=== PATIENT | female | born 1990 | race Caucasian/White ===

== ENCOUNTER 2017-02-21 10:15 | Inpatient (IN) | payer MEDICAID ==
[~2017-02-21] VITALS: Ht 165.1 cm; Wt 66.9 kg
[2017-02-21] MEDS ORDERED: DIAZEPAM 5 MG/ML, 2ML IVPush ONE (11:00)
[2017-02-21] MEDS ORDERED: SODIUM CHLORIDE FLUSH 10ML SYR IVF ONE (11:00)
[2017-02-21] MEDS ORDERED: KETOROLAC 30 MG/1 ML IVPush ONE (11:00)
[2017-02-21] MEDS ORDERED: SODIUM CHLORIDE 0.9% 1,000ML IV ONE (11:00)
[2017-02-21] MEDS ORDERED: KETOROLAC 30 MG/1 ML ONE (11:37)
[2017-02-21 12:26] LABS: HEMATOCRIT 43.1 % (34.6-47.8); HEMOGLOBIN 14.2 g/dL (11.7-16.4); WHITE BLOOD COUNT 20.4 x10^3/uL (3.4-10)
[2017-02-21 12:34] LABS: BLOOD UREA NITROGEN 10 mg/dL (7-18)
[2017-02-21 12:36] LABS: DIFF TOTAL CELLS COUNTED 100 CELL DIFF
[2017-02-21 12:38] LABS: VERIFY COUNTS? YES
[2017-02-21] MEDS ORDERED: GADOBUTROL 7.5 MMOL/7.5 ML PFS ONE (13:38)
[2017-02-21] MEDS ORDERED: OMNIPAQUE 350 MG/ML, 100ML BOTTLE ONE (13:58)
[2017-02-21] MEDS ORDERED: PIPERACILLIN/TAZO/PMX 3.375GM 50 ML ONE (14:22)
[2017-02-21] MEDS ORDERED: VANCOMYCIN 1,200 MG in SODIUM CHLORIDE 0.9% 250 ML IV ONE (14:30)
[2017-02-21] MEDS ORDERED: SODIUM CHLORIDE 0.9% 1,000ML IVBOLUS ONE (14:30)
[2017-02-21] MEDS ORDERED: PIPERACILLIN/TAZO/PMX 3.375GM 50 ML IV ONE (14:30)
[2017-02-21] MEDS ORDERED: VANCOMYCIN PER PHARMACY MC ONE (14:30)
[2017-02-21] MEDS ORDERED: POLYETHYLENE GLYCOL 17 GM PACKET PO PRN (17:00)
[2017-02-21] MEDS ORDERED: VANCOMYCIN PER PHARMACY MC PRN (17:00)
[2017-02-21] MEDS ORDERED: DOCUSATE 100 MG CAPSULE PO PRN (17:00)
[2017-02-21] MEDS ORDERED: BISACODYL 10 MG SUPP PR PRN (17:00)
[2017-02-21] MEDS ORDERED: PROMETHAZINE 25 MG/ML, 1ML IM PRN (17:00)
[2017-02-21 17:22] LABS: HIV 1&2 ANTIBODY SCREEN Nonreactive (Nonreactive); HIV-1 p24 ANTIGEN Nonreactive (Nonreactive)
[2017-02-21] MEDS: ENOXAPARIN 40 MG/0.4 ML SQ SCH (18:00)
[2017-02-21] MEDS ORDERED: PHARMACOKINETIC MONITORING MC PRN (18:00)
[2017-02-21] MEDS: HYDROcodone/APAP 5/325 TABLET PO PRN (18:31)
[2017-02-21] MEDS: LORazepam 2 MG/ML, 1ML IVPush PRN (18:31)
[2017-02-21 19:00] VITALS: BP 116/77
[2017-02-21] MEDS: SODIUM CHLORIDE 0.9% 1,000 ML IV SCH (20:25)
[2017-02-21] MEDS: PIPERACILLIN/TAZO/PMX 3.375GM 50 ML IV SCH (22:53)
[2017-02-21 23:00] VITALS: BP 116/77
[2017-02-22] MEDS: HYDROcodone/APAP 5/325 TABLET PO PRN ×4 (00:14→21:06)
[2017-02-22 01:22] VITALS: BP 108/71
[2017-02-22] MEDS: VANCOMYCIN 1,200 MG in SODIUM CHLORIDE 0.9% 250 ML IV SCH ×2 (04:04→17:03)
[2017-02-22] MEDS: SODIUM CHLORIDE 0.9% 1,000 ML IV SCH ×3 (04:04→21:06)
[2017-02-22] MEDS: morphine SULFATE 10 MG/ML, 1ML IVPush PRN ×7 (05:51→23:53)
[2017-02-22] MEDS: ONDANSETRON 2MG/ML, 2ML IVPush PRN ×2 (05:51→13:05)
[2017-02-22 06:03] LABS: HEMATOCRIT 32.1 % (34.6-47.8); HEMOGLOBIN 10.8 g/dL (11.7-16.4)
[2017-02-22 06:24] LABS: ASPARTATE AMINO TRANSFERASE 10 U/L (15-37); BLOOD UREA NITROGEN 11 mg/dL (7-18)
[2017-02-22] MEDS: PIPERACILLIN/TAZO/PMX 3.375GM 50 ML IV SCH ×3 (06:37→21:06)
[2017-02-22 07:50] VITALS: BP 132/87
[2017-02-22 14:25] VITALS: BP 116/78
[2017-02-22] MEDS: ENOXAPARIN 40 MG/0.4 ML SQ SCH (17:03)
[2017-02-22 20:35] VITALS: BP 124/93
[2017-02-22] MEDS: LORazepam 2 MG/ML, 1ML IVPush PRN (23:32)
[2017-02-23] MEDS: HYDROcodone/APAP 5/325 TABLET PO PRN ×5 (02:06→22:10)
[2017-02-23 02:11] VITALS: BP 120/76
[2017-02-23] MEDS: morphine SULFATE 10 MG/ML, 1ML IVPush PRN ×5 (04:35→23:14)
[2017-02-23] MEDS: PIPERACILLIN/TAZO/PMX 3.375GM 50 ML IV SCH ×3 (04:40→20:44)
[2017-02-23] MEDS: SODIUM CHLORIDE 0.9% 1,000 ML IV SCH ×3 (04:40→19:40)
[2017-02-23 05:54] LABS: HEMATOCRIT 30.5 % (34.6-47.8); HEMOGLOBIN 10.1 g/dL (11.7-16.4); WHITE BLOOD COUNT 13.6 x10^3/uL (3.4-10)
[2017-02-23 05:56] LABS: BLOOD UREA NITROGEN 8 mg/dL (7-18)
[2017-02-23] MEDS: VANCOMYCIN 1,200 MG in SODIUM CHLORIDE 0.9% 250 ML IV SCH (06:00)
[2017-02-23] MEDS: ONDANSETRON 2MG/ML, 2ML IVPush PRN ×2 (06:10→13:03)
[2017-02-23] MEDS: LORazepam 2 MG/ML, 1ML IVPush PRN ×2 (06:10→13:03)
[2017-02-23 07:44] VITALS: BP 136/94
[2017-02-23] MEDS ORDERED: POTASSIUM CHLORIDE 20 MEQ TAB.ER.PRT PO ONE (10:30)
[2017-02-23 14:00] VITALS: BP 120/85
[2017-02-23] MEDS: ENOXAPARIN 40 MG/0.4 ML SQ SCH (17:33)
[2017-02-23 20:08] VITALS: BP 119/84
[2017-02-24] MEDS: morphine SULFATE 10 MG/ML, 1ML IVPush PRN ×2 (02:21→05:22)
[2017-02-24 02:49] VITALS: BP 110/73
[2017-02-24] MEDS: HYDROcodone/APAP 5/325 TABLET PO PRN (02:54)
[2017-02-24] MEDS: SODIUM CHLORIDE 0.9% 1,000 ML IV SCH ×4 (04:10→18:20)
[2017-02-24] MEDS: PIPERACILLIN/TAZO/PMX 3.375GM 50 ML IV SCH ×3 (05:22→21:31)
[2017-02-24 05:32] LABS: HEMATOCRIT 33.7 % (34.6-47.8); HEMOGLOBIN 11.3 g/dL (11.7-16.4); WHITE BLOOD COUNT 15.7 x10^3/uL (3.4-10)
[2017-02-24 05:35] LABS: BLOOD UREA NITROGEN 7 mg/dL (7-18)
[2017-02-24 06:51] VITALS: BP 127/90
[2017-02-24] MEDS ORDERED: HYDROmorphone 1 MG/ML, 1ML IV PRN ×3 (07:30→20:15)
[2017-02-24] MEDS: ONDANSETRON 2MG/ML, 2ML IVPush PRN (07:49)
[2017-02-24] MEDS: LORazepam 2 MG/ML, 1ML IVPush PRN ×3 (08:52→19:43)
[2017-02-24 13:25] VITALS: BP 136/81
[2017-02-24 15:14] LABS: C-REACTIVE PROTEIN, QUANT > 19.00 mg/dL (0.02-0.49)
[2017-02-24] MEDS ORDERED: VANCOMYCIN PER PHARMACY MC PRN (16:30)
[2017-02-24] MEDS ORDERED: PHARMACOKINETIC MONITORING MC PRN (17:00)
[2017-02-24] MEDS ORDERED: PHARMACOKINETIC CONSULTATION MC ONE (17:00)
[2017-02-24] MEDS: ENOXAPARIN 40 MG/0.4 ML SQ SCH (17:52)
[2017-02-24] MEDS: VANCOMYCIN 1,200 MG in SODIUM CHLORIDE 0.9% 250 ML IV SCH ×2 (17:52→22:16)
[2017-02-24] MEDS: HYDROmorphone 1 MG/ML, 1ML IV PRN (18:51)
[2017-02-24] MEDS ORDERED: OMNIPAQUE 350 MG/ML, 100ML BOTTLE ONE (19:36)
[2017-02-24 20:00] VITALS: BP 139/83
[2017-02-24] MEDS: ACETAMINOPHEN 325 MG TABLET PO PRN (21:31)
[2017-02-24 21:38] LABS: IS PT STATUS REG ER OR PRE ER? NO
[2017-02-25 01:08] VITALS: BP 116/81
[2017-02-25] MEDS: HYDROmorphone 1 MG/ML, 1ML IV PRN ×4 (01:08→20:42)
[2017-02-25] MEDS: LORazepam 2 MG/ML, 1ML IVPush PRN ×5 (03:08→21:43)
[2017-02-25 04:29] LABS: DAU SCREEN DISCLAIMER
[2017-02-25] MEDS: SODIUM CHLORIDE 0.9% 1,000 ML IV SCH ×3 (05:34→21:50)
[2017-02-25] MEDS: PIPERACILLIN/TAZO/PMX 3.375GM 50 ML IV SCH (05:34)
[2017-02-25 06:09] LABS: HEMATOCRIT 31.7 % (34.6-47.8); HEMOGLOBIN 10.8 g/dL (11.7-16.4); WHITE BLOOD COUNT 13.6 x10^3/uL (3.4-10)
[2017-02-25 06:22] LABS: BLOOD UREA NITROGEN 4 mg/dL (7-18)
[2017-02-25 06:29] LABS: ASPARTATE AMINO TRANSFERASE 25 U/L (15-37); IS PT STATUS REG ER OR PRE ER? NO
[2017-02-25 07:27] VITALS: BP 120/80
[2017-02-25] MEDS: VANCOMYCIN 1,200 MG in SODIUM CHLORIDE 0.9% 250 ML IV SCH (10:19)
[2017-02-25 11:14] LABS: IS PT STATUS REG ER OR PRE ER? NO
[2017-02-25] MEDS: CEFAZOLIN PMX 2GM/50ML 50 ML IVPB SCH ×2 (14:34→21:43)
[2017-02-25 14:44] VITALS: BP 121/82
[2017-02-25] MEDS: ENOXAPARIN 40 MG/0.4 ML SQ SCH (17:43)
[2017-02-25 19:33] VITALS: BP 128/89
[2017-02-26 01:28] VITALS: BP 132/92
[2017-02-26] MEDS: LORazepam 2 MG/ML, 1ML IVPush PRN ×5 (01:38→19:35)
[2017-02-26] MEDS: HYDROmorphone 1 MG/ML, 1ML IV PRN ×3 (02:46→17:13)
[2017-02-26] MEDS: SODIUM CHLORIDE 0.9% 1,000 ML IV SCH ×3 (05:23→17:19)
[2017-02-26] MEDS: CEFAZOLIN PMX 2GM/50ML 50 ML IVPB SCH ×3 (05:42→23:00)
[2017-02-26 07:24] VITALS: BP 133/91
[2017-02-26 11:06] LABS: HEMATOCRIT 31.4 % (34.6-47.8); HEMOGLOBIN 10.3 g/dL (11.7-16.4); WHITE BLOOD COUNT 12.4 x10^3/uL (3.4-10)
[2017-02-26 13:28] VITALS: BP 138/102
[2017-02-26] MEDS: ENOXAPARIN 40 MG/0.4 ML SQ SCH (17:13)
[2017-02-26 19:46] VITALS: BP 115/72
[2017-02-27] MEDS: FAMOTIDINE 20 MG TABLET PO SCH ×3 (00:58→21:39)
[2017-02-27] MEDS: NICOTINE 21 MG/24 HR PATCH.TD24 TD SCH (00:59)
[2017-02-27] MEDS: SODIUM CHLORIDE 0.9% 1,000 ML IV SCH ×4 (01:30→21:39)
[2017-02-27] MEDS: ONDANSETRON 2MG/ML, 2ML IVPush PRN ×2 (01:37→21:01)
[2017-02-27] MEDS: LORazepam 2 MG/ML, 1ML IVPush PRN ×3 (01:38→17:32)
[2017-02-27 02:00] VITALS: BP 136/85
[2017-02-27] MEDS: HYDROmorphone 1 MG/ML, 1ML IV PRN ×3 (05:38→21:39)
[2017-02-27] MEDS: CEFAZOLIN PMX 2GM/50ML 50 ML IVPB SCH ×3 (05:41→22:53)
[2017-02-27 08:41] VITALS: BP 116/86
[2017-02-27 14:21] VITALS: BP 146/91
[2017-02-27] MEDS: ENOXAPARIN 40 MG/0.4 ML SQ SCH (17:29)
[2017-02-27 19:15] VITALS: BP 131/87
[2017-02-28] MEDS: LORazepam 2 MG/ML, 1ML IVPush PRN ×2 (01:48→19:28)
[2017-02-28 02:26] VITALS: BP 134/90
[2017-02-28 04:59] LABS: HEMATOCRIT 31.7 % (34.6-47.8); HEMOGLOBIN 10.6 g/dL (11.7-16.4); WHITE BLOOD COUNT 11.8 x10^3/uL (3.4-10)
[2017-02-28 05:15] LABS: BLOOD UREA NITROGEN 3 mg/dL (7-18)
[2017-02-28] MEDS: SODIUM CHLORIDE 0.9% 1,000 ML IV SCH ×3 (05:28→23:49)
[2017-02-28] MEDS: CEFAZOLIN PMX 2GM/50ML 50 ML IVPB SCH ×3 (06:21→23:48)
[2017-02-28] MEDS: FAMOTIDINE 20 MG TABLET PO SCH ×2 (07:30→23:48)
[2017-02-28] MEDS: HYDROmorphone 1 MG/ML, 1ML IV PRN ×3 (07:32→23:49)
[2017-02-28 07:51] VITALS: BP 127/85
[2017-02-28 13:53] VITALS: BP 111/72
[2017-02-28] MEDS: ENOXAPARIN 40 MG/0.4 ML SQ SCH (16:36)
[2017-02-28 19:03] VITALS: BP 133/80
[2017-02-28] MEDS: NICOTINE 21 MG/24 HR PATCH.TD24 TD SCH ×2 (23:49)
[2017-03-01 01:11] VITALS: BP 136/90
[2017-03-01] MEDS: ONDANSETRON 2MG/ML, 2ML IVPush PRN (01:55)
[2017-03-01] MEDS: LORazepam 2 MG/ML, 1ML IVPush PRN ×3 (01:55→18:14)
[2017-03-01] MEDS: CEFAZOLIN PMX 2GM/50ML 50 ML IVPB SCH ×3 (06:28→22:18)
[2017-03-01] MEDS: SODIUM CHLORIDE 0.9% 1,000 ML IV SCH ×3 (06:28→22:19)
[2017-03-01] MEDS: HYDROmorphone 1 MG/ML, 1ML IV PRN ×3 (07:50→22:18)
[2017-03-01] MEDS: FAMOTIDINE 20 MG TABLET PO SCH ×2 (07:50→20:34)
[2017-03-01 07:55] VITALS: BP 138/94
[2017-03-01 14:00] VITALS: BP 114/70
[2017-03-01] MEDS: ENOXAPARIN 40 MG/0.4 ML SQ SCH (18:15)
[2017-03-01 19:14] VITALS: BP 128/86
[2017-03-01] MEDS: ACETAMINOPHEN 325 MG TABLET PO PRN (20:33)
[2017-03-02] MEDS: NICOTINE 21 MG/24 HR PATCH.TD24 TD SCH
[2017-03-02] MEDS: LORazepam 2 MG/ML, 1ML IVPush PRN (02:00)
[2017-03-02 02:40] VITALS: BP 148/89
[2017-03-02] MEDS: CEFAZOLIN PMX 2GM/50ML 50 ML IVPB SCH ×2 (05:50→14:02)
[2017-03-02] MEDS: HYDROmorphone 1 MG/ML, 1ML IV PRN (06:26)
[2017-03-02 07:29] VITALS: BP 172/106
[2017-03-02] MEDS ORDERED: LABETALOL 5MG/ML, 20ML IVPush PRN (09:30)
[2017-03-02] MEDS ORDERED: LORazepam 1MG TABLET PO PRN (10:00)
[2017-03-02 15:25] VITALS: BP 147/82
== END 2017-03-02 17:00 | disposition left against medical advice (07) | DRG 871 ==
LOC: ED 12:46 → EDIP 15:47 → 3NE 17:35
PROVIDERS: ADMIT Internal Medicine; ATTEND Hospitalist
DX: A41.01 Sepsis due to Methicillin susceptible Staphylococcus aureus (principal); J18.9 Pneumonia, unspecified organism; I24.8 Other forms of acute ischemic heart disease; J98.11 Atelectasis; M00.9 Pyogenic arthritis, unspecified; M86.9 Osteomyelitis, unspecified; N12 Tubulo-interstitial nephritis, not specified as acute or chronic; F12.90 Cannabis use, unspecified, uncomplicated; F15.90 Other stimulant use, unspecified, uncomplicated; M79.604 Pain in right leg; F11.10 Opioid abuse, uncomplicated; F19.10 Other psychoactive substance abuse, uncomplicated; F32.9 Major depressive disorder, single episode, unspecified; K75.9 Inflammatory liver disease, unspecified; M46.40 Discitis, unspecified, site unspecified; R09.02 Hypoxemia; Z87.11 Personal history of peptic ulcer disease
CPT/HCPCS: 36415; 71010; 71275; 72110; 72158; 74177; 80048; 80053; 80307; 81001; 82550; 83605; 83690; 83735; 83880; 84100; 84145; 84484; 84703; 85025; 85651; 86140; 86141; 86703; 86704; 86706; 86708; 86709; 86803; 87040; 87077; 87086; 87147; 87186; 87340; 87899; 93005; 93306; 96365; 96375; A9585; J0690; J1170; J1650; J1885; J2405; J2543; J2550; J3370; Q9967; G0435; G0479; J2060; J2270; J7030; J7050

== ENCOUNTER 2019-02-26 12:58 | Emergency (ER) | payer MEDICAID, OTHER ==
[~2019-02-26] VITALS: Ht 165.1 cm; Wt 62.4 kg
[2019-02-26 13:24] VITALS: BP 93/66
[2019-02-26] MEDS ORDERED: LIDOCAINE-MPF 1%, 5ML ONE (13:44)
[2019-02-26] MEDS ORDERED: DIPH,PERTUSS(ACELL),TET VAC/PF 0.5 ML IM-VACC ONE (13:44)
[2019-02-26] MEDS ORDERED: CEFAZOLIN 1,000 MG ONE (13:46)
[2019-02-26] MEDS ORDERED: CEFAZOLIN 1,000 MG IM ONE (14:00)
[2019-02-26] MEDS ORDERED: LIDOCAINE-MPF 1%, 5ML INFIL ONE (14:00)
--- NOTE | 2019-02-26 14:13 | NUR ---
PT GIVEN D/C INSTRUCTIONS. INFORMED TO COME BACK TO ED IN 24 TO 48 HOURS. D/C INSTRUCTIONS VERBALIZED UNDERSTANDING.
== END 2019-02-26 14:16 ==
LOC: ED 14:10
DX: L02.415 Cutaneous abscess of right lower limb (principal); F17.200 Nicotine dependence, unspecified, uncomplicated
CPT/HCPCS: 10060; 96372; 99284; J0690; 99283

== ENCOUNTER 2019-03-01 08:21 | Emergency (ER) | payer SELFPAY ==
[~2019-03-01] VITALS: Ht 165.1 cm; Wt 61.4 kg
[2019-03-01 08:28] VITALS: BP 113/79
[2019-03-01] MEDS ORDERED: HYDROmorphone 1 MG/ML, 1ML INJ IM ONE (08:30)
[2019-03-01] MEDS ORDERED: ONDANSETRON ODT 4 MG PO ONE (08:30)
[2019-03-01] MEDS ORDERED: ONDANSETRON ODT 4 MG ONE (08:58)
[2019-03-01] MEDS ORDERED: HYDROmorphone 1 MG/ML, 1ML VIAL ONE (08:59)
[2019-03-01] MEDS ORDERED: CEFAZOLIN 1,000 MG ONE (08:59)
[2019-03-01] MEDS: CEFAZOLIN 1,000 MG IM ONE ×2 (09:00→09:04)
[2019-03-01] MEDS ORDERED: CEPHALEXIN 500 MG CAPSULE ONE (09:11)
--- NOTE | 2019-03-01 09:17 | NUR ---
PT DID NOT TOLERATE IM DILAUDID INJECTION, IM INJ OF ANCEF CHANGED TO PO KEFLEX PER
[2019-03-01] MEDS ORDERED: CEPHALEXIN 500 MG CAPSULE PO ONE (09:30)
== END 2019-03-01 09:43 | disposition home or self-care (01) ==
LOC: ED 08:35
DX: Z48.01 Encounter for change or removal of surgical wound dressing (principal); F17.200 Nicotine dependence, unspecified, uncomplicated
CPT/HCPCS: 96372; 99283; J1170; Q0162; J0690

== ENCOUNTER 2019-05-07 10:40 | Emergency (ER) | payer SELFPAY ==
[~2019-05-07] VITALS: Ht 165.1 cm; Wt 60.0 kg
--- NOTE | 2019-05-07 11:40 | NUR ---
BREAK RN: PT FROM TRIAGE TO ROOM VIA WHEELCHAIR. FAMILY AT BEDSIDE. PT C/O EPIGASTRIC ABD PAIN WITH N/V X 3 DAYS AND STATES SHE HAS NOT BEEN ABLE TO EAT FOR 1 WEEK. PT RPTS ATTEMPTING TO STOP HEROINE AND METH. LAST HEROINE USE 2 WEEKS AGO, SMOKED METH THIS MORNING. PT HAS BEEN SELF MEDICATING WITH METHADONE BUT LAST METHADONE WAS 1 WEEK AGO. SHANNON CHARLES AT BEDSIDE, PT ASSESSMENT AND POC DISCUSSED. ORDERS REC'D.
[2019-05-07] MEDS ORDERED: SODIUM CHLORIDE 0.9% 1,000ML IVBOLUS ONE (12:00)
[2019-05-07] MEDS ORDERED: FAMOTIDINE 20 MG/2 ML ONE (12:00)
[2019-05-07] MEDS ORDERED: ONDANSETRON 2MG/ML, 2ML ONE (12:00)
[2019-05-07] MEDS ORDERED: ONDANSETRON 2MG/ML, 2ML IVPush ONE (12:00)
[2019-05-07] MEDS ORDERED: FAMOTIDINE 20 MG/2 ML IVPush ONE (12:00)
--- NOTE | 2019-05-07 12:05 | NUR ---
assumed care of pt. report from Miriam DAWN. pt here for chills and body aches s/p smoking meth today. pt reports that she has a hx of heroin and meth abuse and has been trying to quit. pt is moaning and diaphoretic. pt has been medicated an is resting in position of comfort. family at bedside. iv infusing
--- NOTE | 2019-05-07 12:05 | NUR ---
BREAK RN: PIV ESTABLISHED, IVF INFUSING WIDE OPEN W/O DIFFICULTY AND PT MED NOTED. CALL LIGHT W/I REACH, SBAR RPT TO L[facility]PE[facility] HARMON.
[2019-05-07 12:17] LABS: BASOPHILS # (AUTO) 0.05 x10^3/uL (0-0.1); BASOPHILS % (AUTO) 0 % (0-1); EOSINOPHILS # (AUTO) 0.05 x10^3/uL (0-0.4); EOSINOPHILS % (AUTO) 0 % (1-7); LYMPHOCYTES # (AUTO) 1.52 x10^3/uL (1-3.4); LYMPHOCYTES % (AUTO) 11 % (22-44); MD NO; MEAN CORPUSCULAR HEMOGLOBIN 26.9 pg (27.0-34.8); MEAN CORPUSCULAR HGB CONC 32.9 g/dL (32.4-35.8); MEAN CORPUSCULAR VOLUME 81.8 fL (80-100); MEAN PLATELET VOLUME 8.4 fL (7.4-10.4); MONOCYTES # (AUTO) 0.59 x10^3/uL (0.2-0.8); MONOCYTES % (AUTO) 4 % (2-9); NEUTROPHILS # (AUTO) 11.44 x10^3/uL (1.8-6.8); NEUTROPHILS % (AUTO) 84 % (42-75); PLATELET COUNT 369 x10^3/uL (130-400); RED BLOOD COUNT 5.61 x10^6/uL (3.82-5.3); RED CELL DISTRIBUTION WIDTH 14.8 % (9.6-15.2)
[2019-05-07 12:23] LABS: ALBUMIN 3.9 g/dL (3.4-5.0); ANION GAP 8 mmol/L (5-15); CALCIUM 9.8 mg/dL (8.5-10.1); CHLORIDE 101 mmol/L (98-107)
[2019-05-07 12:28] LABS: ALANINE AMINOTRANSFERASE 99 U/L (12-78); ALKALINE PHOSPHATASE 94 U/L (45-117); BILIRUBIN,TOTAL 0.6 mg/dL (0.2-1.0); CREATININE 0.81 mg/dL (0.55-1.02); TOTAL PROTEIN 9.3 g/dL (6.4-8.2)
--- NOTE | 2019-05-07 12:36 | NUR ---
pt and family aware that urine sample needed
--- NOTE | 2019-05-07 13:05 | NUR ---
pt reports that she is unable to give urine sample at this time. dozing intermittently
[2019-05-07] MEDS ORDERED: KETOROLAC 30 MG/1 ML IVPush ONE (14:00)
[2019-05-07] MEDS ORDERED: KETOROLAC 30 MG/1 ML ONE (14:20)
[2019-05-07 14:26] LABS: CULTURE INDICATED? YES; MICROSCOPIC INDICATED
[2019-05-07 14:27] VITALS: BP 122/80
--- NOTE | 2019-05-07 14:29 | NUR ---
pt has been medicated for pain per order. PO fluids given per request. positioning for comfort. warm blankets given and lights dimmed
--- NOTE | 2019-05-07 14:40 | NUR ---
this pt has been D/C by another RN
--- NOTE | 2019-05-07 14:49 | NUR ---
TASK RN: Patient/Caregiver given discharge instructions and they have confirmed that they understand the instructions. Patient transfered independently to wheelchair for discharge.
== END 2019-05-07 14:40 | disposition home or self-care (01) ==
LOC: ED 13:11
DX: K29.00 Acute gastritis without bleeding (principal); R11.2 Nausea with vomiting, unspecified; F17.210 Nicotine dependence, cigarettes, uncomplicated; F15.10 Other stimulant abuse, uncomplicated
CPT/HCPCS: 36415; 76700; 80053; 81001; 83690; 84703; 85025; 87086; 96361; 96374; 96375; 99284; J1885; J2405; J3490; J7030